=== PATIENT | female | born 1995 | race Two or more races ===

== ENCOUNTER 2019-02-27 18:09 | Emergency (ER) | payer OTHER ==
[~2019-02-27] VITALS: Ht 157.5 cm; Wt 70.3 kg
[2019-02-27 22:59] LABS: Basophils # (auto) 0.1 uL; Basophils % (auto) 1.2 % (0.0-2.0); Eosinophils # (auto) 0.3 uL; Eosinophils % (auto) 3.1 % (0.0-7.0); Hematocrit 41.1 % (36.0-46.0); Hemoglobin 13.4 g/dL (12.2-16.2); Lymphocytes # (auto) 2.6 uL; Lymphocytes % (auto) 30.2 % (10.0-50.0); Mean Corpuscular Hemoglobin 26.5 pg (28.0-32.0); Mean Corpuscular Hgb Conc. 32.5 g/dL (32.0-36.0); Mean Corpuscular Volume 81.5 fL (80.0-100.0); Monocytes # (auto) 0.8 uL; Monocytes % (auto) 8.6 % (0.0-12.0); Neutrophils % (auto) 56.9 % (37.0-80.0); Nucleated Red Blood Cells % 0.1 %; Platelet Count (auto) 303 10^3/uL (140-450); Red Blood Cells 5.04 10^6/uL (4.0-5.20); Red Cell Distribution Width 14.4 % (11.8-14.3); White Blood Cell 8.7 10^3/uL (4.4-10.8)
[2019-02-27 23:18] LABS: Albumin 3.9 g/dL (3.4-5.0); BUN/Creatinine Ratio 26.8; Calcium 8.6 mg/dL (8.5-10.1); Potassium 3.9 mmol/L (3.5-5.1)
[2019-02-27 23:21] LABS: Bilirubin, Total 0.2 mg/dL (0.2-1.0)
[2019-02-28 03:16] VITALS: BP 98/66
[2019-02-28] MEDS ORDERED: MAGNESIUM CITRATE SOLUTION 300 ML BTL PO ONE (04:15)
== END 2019-02-28 04:24 | disposition home or self-care (01) ==
LOC: ER 18:15
DX: N83.202 Unspecified ovarian cyst, left side (principal); K59.00 Constipation, unspecified
CPT/HCPCS: 36415; 74176; 80053; 85025

== ENCOUNTER 2021-07-10 13:53 | Emergency (ER) | payer OTHER ==
[~2021-07-10] VITALS: Ht 157.5 cm; Wt 77.1 kg
[2021-07-10 14:10] VITALS: BP 135/69
[2021-07-10 16:16] LABS: Urine Bacteria FEW /hpf (None Seen); Urine Blood 1+ /uL (Negative); Urine Mucus FEW (None Seen); Urine Specific Gravity 1.027 (1.001-1.035); Urine WBC 5 /hpf (0 - 5)
[2021-07-10 16:26] LABS: Basophils # (auto) 0.1 10 ^3/uL (0-0.2); Basophils % (auto) 0.6 % (0.0-2.0); Eosinophils # (auto) 0.1 10 ^3/uL (0-0.8); Eosinophils % (auto) 0.9 % (0.0-7.0); Hematocrit 39.4 % (36.0-46.0); Lymphocytes # (auto) 1.4 10 ^3/uL (0.4-5.4); Lymphocytes % (auto) 10.5 % (10.0-50.0); Mean Corpuscular Hemoglobin 25.1 pg (28.0-32.0); Mean Corpuscular Hgb Conc. 32.9 g/dL (32.0-36.0); Mean Corpuscular Volume 76.2 fL (80.0-100.0); Monocytes # (auto) 0.6 10 ^3/uL (0-1.3); Monocytes % (auto) 4.5 % (0.0-12.0); Neutrophils # (auto) 11.4 10 ^3/uL (1.6-8.6); Neutrophils % (auto) 83.5 % (37.0-80.0); Red Blood Cells 5.17 10^6/uL (4.0-5.20); White Blood Cell 13.7 10^3/uL (4.4-10.8)
[2021-07-10 16:44] LABS: Albumin 3.5 g/dL (3.4-5.0); Potassium 3.5 mmol/L (3.5-5.1)
[2021-07-10 16:47] LABS: BUN/Creatinine Ratio 20.4; Bilirubin, Total 0.2 mg/dL (0.2-1.0); Total Protein 8.1 g/dL (6.4-8.2)
[2021-07-10] MEDS ORDERED: D5W/SOD CHLO 0.9% 1,000 ML IV ONE (17:15)
[2021-07-10] MEDS ORDERED: METOCLOPRAMIDE HCL 5MG/ml INJ 2ml VIAL IV ONE (17:15)
== END 2021-07-10 19:12 | disposition left against medical advice (07) ==
LOC: ER 13:56
DX: O21.8 Other vomiting complicating pregnancy (principal); Z3A.10 10 weeks gestation of pregnancy
CPT/HCPCS: 36415; 76705; 76801; 80053; 81001; 82010; 84702; 85025; 96374; 99284; J2765; J7030